=== PATIENT | female | born 1990 | race Caucasian/White ===

== ENCOUNTER 2021-04-27 06:57 | Emergency (ER) | payer OTHER, SELFPAY ==
[2021-04-27 07:31] VITALS: BP 101/48; PULSE 95; RESP 17; TEMP 37; O2SAT 98
[2021-04-27] MEDS: KETOROLAC (*BKC) 60 MG/2 ML VIAL IM (07:52)
[2021-04-27 08:13] LABS: Add Urine Microscopic? NO; Appearance Urine Clear (Clear); Bilirubin Urine Negative (Negative); Blood Urine Negative (Negative); Color Urine Light Yellow (Yellow); Glucose Urine UA Negative (Negative); Ketones Urine Negative (Negative); Leukocyte Esterase Ur Negative (Negative); Nitrate Urine Negative (Negative); Protein Urine Negative (Negative); Specific Grav Ur <= 1.005 (1.010-1.020); Urobilinogen Urine 0.2 mg/dL (0.2-1.0)
--- NOTE | 2021-04-27 08:21 | ED.BACK ---
HPI - Back Pain/Injury General Chief Complaint: Back Pain/Injury Stated Complaint: POSSIBLE BLADDER INFECTION Source: patient Mode of arrival: ambulatory Limitations: no limitations History of Present Illness HPI Narrative: this is a 31-year-old female who presents with some lower back pain around the L4-L5 right paravertebral area that is tender with some with movement no known injury has had prior issues with her lower back, with no fever chills no saddle paresthesias no dysuria no hematuria no diarrhea constipation. Rates her pain about a 6/10. MD elicited complaint: back pain Pertinent past history: prior back pain Onset (ago): day(s) Timing: constant Severity: moderate Pain scale (0-10): 6 Similar Symptoms Previously: Yes Quality: aching and spasming Location: lumbar spine Exacerbating factors: movement Relieving factors: immobilization Related Data Allergies Allergy/AdvReac Type Severity Reaction Status Date / Time No Known Allergies Allergy Mild Verified 02/28/11 19:37 Review of Systems Review of Systems: All systems reviewed & are unremarkable except as noted in HPI and below PMFSH Past Medical History Medical History Back pain Exam Const: General: no acute distress and alert Orientation/consciousness: patient oriented x3 HENMT: Head: normal to inspection Eyes: Conjunctivae: conjunctivae normal Pupils: Equal, round and reactive pupils present EOM: EOMs intact bilaterally Direct Ophthalmoscopy: no photophobia Neck: Neck: normal visual inspection, no lymphadenopathy and no meningeal signs Chest: Chest palpation & inspection: normal inspection of the chest Resp: Effort & Inspection: normal respiratory effort Auscultation: clear to auscultation bilaterally : General: Yes no CVA tenderness Urinary Catheter: Urinary Catheter: patent and draining and urine clear Back/Spine/Pelvis: Back: no CVA tenderness Skin: General skin exam: normal color Rashes: no rashes Neuro: General: patient oriented x3 and moves all extremities Extrem: Other: right L4 paravertebral tenderness with palpation Psych: Mental Status: mental status grossly normal Affect: normal affect Course Course Emergency Course: patient's pain has improved with some IM Toradol urinalysis reviewed which shows no urinary tract infection. Vital Signs Vital signs: Vital Signs Temperature 37.0 C 04/27/21 07:31 Pulse Rate 95 04/27/21 07:31 Respiratory Rate 17 04/27/21 07:31 Blood Pressure 101/48 L 04/27/21 07:31 Pulse Oximetry 98 04/27/21 07:31 Temperature 37.0 C 04/27/21 07:31 Pulse Rate 95 04/27/21 07:31 Respiratory Rate 17 04/27/21 07:31 Blood Pressure 101/48 L 04/27/21 07:31 Pulse Oximetry 98 04/27/21 07:31 MDM - Back Pain/Injury Lab Data Labs: Lab Results 04/27/21 Range/Units 07:26 Urine Color Light yellow (Yellow) Urine Appearance Clear (Clear) Urine pH 6.0 (5.0-8.0) Ur Specific [place] <= 1.005 L (1.010-1.020) Urine Protein Negative (Negative) Urine Glucose (UA) Negative (Negative) Urine Ketones Negative (Negative) Ur Blood (Man) Negative (Negative) Urine Nitrate Negative (Negative) Urine Bilirubin Negative (Negative) Urine Urobilinogen 0.2 (0.2-1.0) mg/dL Ur Leukocyte Esterase Negative (Negative) Critical Care Time Critical Care Time Critical Care Time: No Discharge Plan Discharge Clinical Impression: Strain of lumbar region Qualifiers: Encounter type: initial encounter Qualified Code(s): S39.012A - Strain of muscle, fascia and tendon of lower back, initial encounter Patient Disposition: Home, Self-Care Condition: Stable Instructions: Antibiotic Form, Acute Low Back Pain (ED) Additional Instructions: Take medicine as prescribed and follow-up with primary care physician if symptoms persist or worsen. Prescriptions: New naproxen 500 mg table
[2021-04-27 08:45] VITALS: BP 114/56; PULSE 73; RESP 18; O2SAT 99
== END 2021-04-27 08:48 | disposition home or self-care (01) ==
PROVIDERS: Emergency Provider Emergency Medicine
DX: S39.012A Strain of muscle, fascia and tendon of lower back, initial encounter (principal)
CPT/HCPCS: 81003; 96372; 99283; J1885

== ENCOUNTER 2021-09-26 12:31 | Emergency (ER) | payer OTHER, SELFPAY ==
[2021-09-26 12:56] VITALS: BP 120/67; PULSE 92; RESP 20; TEMP 36.3; O2SAT 97
--- NOTE | 2021-09-26 13:38 | ED.EAR ---
HPI - Ear Problem General Chief complaint: Ear Stated complaint: possible ear infection Time Seen by Provider: 09/26/21 12:34 Source: patient and RN notes reviewed Mode of arrival: ambulatory Limitations: no limitations History of Present Illness Complaint: ear pain Location: bilateral Duration: constant Severity: mild Relieving factors: nothing Exacerbating factors: nothing Discharge from ear: Reports no Associated symptoms ear: decreased hearing Treatment prior to arrival: none Related Data Allergies Allergy/AdvReac Type Severity Reaction Status Date / Time No Known Allergies Allergy Mild Verified 09/26/21 13:02 Review of Systems Review of Systems: All systems reviewed & are unremarkable except as noted in HPI and below PMFSH Past Medical History Medical History Back pain Otitis externa Otitis media Exam Const: General: no acute distress Nutritional Appearance: well nourished Orientation/consciousness: patient oriented x3 Limitations: no limitations HENMT: Head: normal to inspection Ears: external ears normal, Abnormal EAC present and TM abnormal General nose exam: Normal external nose present and Normal nares present Face and sinus: sinuses nontender Mouth: Yes moist mucous membranes Throat: posterior oropharynx normal Eyes: Conjunctivae: conjunctivae normal Pupils: Equal, round and reactive pupils present EOM: EOMs intact bilaterally Neck: Neck: normal visual inspection and no lymphadenopathy Chest: Chest palpation & inspection: normal inspection of the chest Resp: Effort & Inspection: normal respiratory effort Auscultation: clear to auscultation bilaterally Cardio: Rate: regular rate Rhythm: regular rhythm GI: GI Palp: Yes Soft to palpation and No Tenderness to palpation present (GI) Auscultation: normal bowel sounds : General: Yes bladder normal to palpation and Yes no CVA tenderness Back/Spine/Pelvis: Back: no CVA tenderness Skin: General skin exam: normal color Rashes: no rashes Neuro: General: patient oriented x3, moves all extremities, no meningeal signs, no focal motor deficits and CN's II-XI intact bilaterally Extrem: General: normal to inspection and no pedal edema Psych: Appearance: grossly normal and well kempt Mental Status: mental status grossly normal Affect: normal affect Attitude: cooperative Thought content: Yes Normal thought content present Course Course Emergency Course: Pt was stable with less pain. Reevaluation(s) Reevaluation #1: vss Date: 09/26/21 Time: 12:56 Vital Signs Vital signs: Vital Signs Temperature 36.3 C L 09/26/21 12:56 Pulse Rate 92 09/26/21 12:56 Respiratory Rate 20 09/26/21 12:56 Blood Pressure 120/67 09/26/21 12:56 Pulse Oximetry 97 09/26/21 12:56 Temperature 36.6 C 09/26/21 13:59 Pulse Rate 88 09/26/21 13:59 Respiratory Rate 20 09/26/21 13:59 Blood Pressure 112/78 09/26/21 13:59 Pulse Oximetry 97 09/26/21 13:59 Medical Decision Making Differential Diagnosis Differential Diagnosis: otitis media and otitis externa Medical Records Medical records reviewed: Yes I reviewed the external patient's medical records. Vital Signs Vital Signs: Vital Signs Temperature 36.3 C L 09/26/21 12:56 Pulse Rate 92 09/26/21 12:56 Respiratory Rate 20 09/26/21 12:56 Blood Pressure 120/67 09/26/21 12:56 Pulse Oximetry 97 09/26/21 12:56 Temperature 36.6 C 09/26/21 13:59 Pulse Rate 88 09/26/21 13:59 Respiratory Rate 20 09/26/21 13:59 Blood Pressure 112/78 09/26/21 13:59 Pulse Oximetry 97 09/26/21 13:59 Critical Care Time Critical Care Time Critical Care Time: No Total Critical Care Time: 0 Discharge Plan Discharge Clinical Impression: Otitis externa Qualifiers: Otitis externa type: unspecified type Chronicity: acute Laterality: bilateral Qualified Code(s): H60.503 - Unspecified acute noninfective otitis
[2021-09-26 13:59] VITALS: BP 112/78; PULSE 88; RESP 20; TEMP 36.6; O2SAT 97
== END 2021-09-26 14:00 | disposition home or self-care (01) ==
PROVIDERS: Emergency Provider Emergency Medicine
DX: H60.503 Unspecified acute noninfective otitis externa, bilateral (principal); H66.90 Otitis media, unspecified, unspecified ear
CPT/HCPCS: 99283

== ENCOUNTER 2021-09-29 10:31 | Emergency (ER) | payer OTHER, SELFPAY ==
[2021-09-29 10:40] VITALS: BP 123/46; PULSE 101; RESP 18; TEMP 37.3; O2SAT 99
--- NOTE | 2021-09-29 11:02 | ED.EAR ---
HPI - Ear Problem General Chief complaint: Ear Stated complaint: EARACHE/FACIAL SWELLING Time Seen by Provider: 09/29/21 10:42 Source: patient and RN notes reviewed Mode of arrival: ambulatory Limitations: no limitations History of Present Illness HPI Narrative: Patient presents today complaining of right ear pain x1 week that has been worsening since onset, and now include swelling to the ear and side of her face. She was seen in the ER at [facility] 3 days ago and diagnosed with otitis media and otitis externa and placed on amoxicillin. She was also told at that time to start Mucinex DM. States that she cannot now hear out of her right ear and has some clear drainage. She currently rates her pain 6/10 and has been taking ibuprofen with mild relief. MD Complaint: ear pain, ear discharge and decreased hearing Related Data Allergies Allergy/AdvReac Type Severity Reaction Status Date / Time No Known Allergies Allergy Mild Verified 09/26/21 13:02 Review of Systems Review of Systems: CONSTITUTIONAL: Denies body aches, fever, chills, or sweats. EYES: Denies visual changes, redness, or discharge. ENT: Denies rhinorrhea, congestion, sore throat. + Right ear pain, swelling, drainage, absent hearing CARDIOVASCULAR: Denies chest pain, palpitations, or edema. RESPIRATORY: Denies cough or dyspnea. GASTROINTESTINAL: Denies abdominal pain, nausea, vomiting, or diarrhea. GENITOURINARY: Denies dysuria or hematuria. SKIN: Denies rash, itching, or wounds. MUSCULOSKELETAL: Denies back pain, joint pain, or myalgia. NEUROLOGIC: Denies headache, numbness, tingling, or weakness. PSYCH: Denies depression or anxiety. [facility] Past Medical History Medical History Back pain Comments At time of signature, I have reviewed and agree with nursing past medical, surgical, social and family history unless otherwise noted. Please see nursing chart for further information. There is no relevant family history pertinent to the presenting complaint Exam Narrative: GENERAL: Well-appearing, well-nourished, and in no acute distress. HEAD: Normocephalic, atraumatic. EYES: EOMI. No redness or drainage. Conjunctivae normal. ENT: Mucous membranes pink and moist. Nares clear. No rhinorrhea. Left TM normal. Right TM is occluded by extremely swollen ear canal. External ear is erythematous and tender to touch. + Movement and tragal tenderness. Yellow/orange crusting drainage coming out of the canal. Patient also has some preauricular swelling. NECK: Normal AROM. CHEST: No respiratory distress. EXTREMITIES: Normal range of motion. No edema. SKIN: Warm, dry, no rash. Capillary refill normal. Normal skin turgor. NEURO: No focal deficits. Alert and oriented x3. Gait steady. PSYCH: Normal affect. No signs of depression or anxiety. Course Course Level of Care: Express Care Visit Vital Signs Vital signs: Vital Signs Temperature 99.2 F 09/29/21 10:40 Pulse Rate 101 H 09/29/21 10:40 Respiratory Rate 18 09/29/21 10:40 Blood Pressure 123/46 L 09/29/21 10:40 Pulse Oximetry 99 09/29/21 10:40 Temperature 99.2 F 09/29/21 10:40 Pulse Rate 101 H 09/29/21 10:40 Respiratory Rate 18 09/29/21 10:40 Blood Pressure 123/46 L 09/29/21 10:40 Pulse Oximetry 99 09/29/21 10:40 Reviewed. Pt has been instructed to follow up with her PCP regarding her elevated blood pressure today. Procedures Other Procedure Procedure 1: Other Procedure: Ear wick was placed in patient's right ear. It was expanded with 2 drops of normal saline. Patient tolerated procedure well. Medical Decision Making Differential Diagnosis Differential Diagnosis: Otitis externa, otitis media, ruptured TM, mastoiditis Vital Signs Vital Signs: Vital Signs Temperature 99.2 F 09/29/21 10:40 Pulse Rate 101 H 09/29/21 10:40 Respiratory Rate 18 09/29/21 10:40 Blood Pressure 123/46
== END 2021-09-29 11:15 | disposition home or self-care (01) ==
PROVIDERS: Emergency Provider Nurse Practitioner
DX: H60.501 Unspecified acute noninfective otitis externa, right ear (principal)
CPT/HCPCS: 99213; G0463

== ENCOUNTER 2023-12-04 06:31 | Emergency (ER) | payer BC, MEDICAID, SELFPAY ==
[2023-12-04] VITALS (9 sets, daily range): BP systolic 107–139; BP diastolic 63–76; PULSE 77–80; RESP 14–18; O2SAT 94–100
--- NOTE | ~2023-12-04 | US_ITS ---
EXAMINATION: US OB limited DATE: 12/04/2023 10:23 INDICATION: Vaginal bleeding. . TECHNIQUE: Real-time transabdominal pelvic ultrasound was performed. COMPARISON: None. FINDINGS: There is an intrauterine gestational sac. There is a single fetus in vertex presentation. The c rown rump length measures 8.7 cm, which correlates with an estimated gestational age of 14 weeks and 4 day(s) (+/-) 1 week(s) and 2 day(s). heart motion is identified measuring 149 beats per minut e (bpm) by M-mode Doppler. The cervical length is 3.3 cm on transabdominal images, which is normal. T he amniotic fluid volume is subjectively normal. The deepest vertical pocket is 4.8 cm which is aurelia l. IMPRESSION: 1. Single living intrauterine gestation with estimated date of delivery of 05/30/2024. Reviewed, dictated and finalized at location A.
[2023-12-04 06:59] LABS: Basophils Percent Auto 0.2 % (0.2-1.2); Eosinophils Absolute Auto 0.1 K/mm3 (0-0.3); Hematocrit 39.1 % (37.0-47.0); Hemoglobin 13.4 g/dL (12.0-15.0); Immature Granulocyte Absolute 0.04 K/mm3 (0.00-0.031); Immature Granulocyte Percent A 0.4 % (0-0.5); Lymphocytes Absolute Auto 1.63 K/mm3 (0.9-3.2); Lymphocytes Percent Auto 17.9 % (18.3-44.2); Mean Corpuscular HGB Conc 34.3 g/dl (32-36); Mean Corpuscular Hemoglobin 30.2 pg (26-34); Mean Corpuscular Volume 88.3 fl (80-100); Monocytes Absolute Auto 0.5 K/mm3 (0.1-0.6); Monocytes Percent Auto 5.4 % (2.6-8.5); Neutrophils Absolute Auto 6.8 K/mm3 (1.3-6.7); Neutrophils Percent Auto 75.1 % (45.5-73.1); Platelet Count Result 256 k/mm3 (150-375); Red Blood Count 4.43 M/mm3 (4.2-5.4); Red Cell Distribution Width 13.1 % (11.5-14.5); White Blood Count 9.1 K/mm3 (4.5-10.0)
[2023-12-04 07:12] LABS: Prothrombin Time 13.2 Seconds (11.1-14.7)
[2023-12-04 07:13] LABS: Alanine Aminotransferase 31 U/L (6-35); Albumin Level 4.3 g/dL (3.5-5.1); Alkaline Phosphatase 66 U/L (38-126); Anion Gap 9 mmol/L (4-12); Aspartate Amino Transferase 22 U/L (14-36); Bilirubin,Total 0.4 mg/dL (0.2-1.3); Blood Urea Nitrogen 4 mg/dL (7-17); Calcium 9.4 mg/dL (8.4-10.2); Carbon Dioxide 18 mmol/L (22-30); Chloride 108 mmol/L (98-107); Estimated CRCL calculation 166 ml/min; Estimated Glomerular Filt Rate > 60; Glucose 95 mg/dL (65-110); Partial Thromboplastin Time 26.8 Seconds (22.3-36.8); Potassium 3.7 mmol/L (3.4-5.0); Sodium 135 mmol/L (137-145)
[2023-12-04 07:15] LABS: Appearance Urine Cloudy (Clear); Bacteria Urine 1+ /hpf; Bilirubin Urine Negative (Negative); Blood Urine 3+ (Negative); Color Urine Yellow (Yellow); Glucose Urine UA Negative (Negative); Ketones Urine Negative (Negative); Leukocyte Esterase Ur Trace LEU/UL (Negative); Need Manual Microscopic Reviewed; Nitrate Urine Negative (Negative); Non Pathogenic Casts 0-2; Protein Urine Trace mg/dL (Negative); RBC Urine 21-50 /hpf (0-2); Specific Grav Ur 1.013 (1.001-1.035); Squamous Epithelial Cell Urine Moderate /hpf (Few); WBC Urine 0-5 /hpf (0-3); pH Urine 7.5 (5.0-9.0)
[2023-12-04 07:16] LABS: Add Urine Microscopic? YES
[2023-12-04 08:32] LABS: Pregnancy On Board Control Positive; Urine Pregnancy Test Positive
--- NOTE | 2023-12-04 08:48 | ED.FEMALEGU ---
HPI - Female Genitourinary General Chief complaint: Vaginal Bleeding Stated complaint: Spotting; ; unsure how far along, guess 3m Time Seen by Provider: 12/04/23 06:57 History of Present Illness HPI Narrative: 33-year-old female presenting to the emergency department for evaluation vaginal spotting. Patient states this morning she noticed that she had passed some old brown blood vaginally. Patient denies any bright red blood denies any lower abdominal pain. Patient suspects she has approximately 3 months . Patient has not yet had follow-up with OB Gyne. Patient does have follow-up with Dr. Ram at [facility] on Saturday. Related Data Allergies Allergy/AdvReac Type Severity Reaction Status Date / Time No Known Allergies Allergy Mild Verified 09/26/21 13:02 Review of Systems Review of Systems: All systems reviewed & are unremarkable except as noted in HPI and below PMFSH Past Medical History Medical History Back pain Otitis externa Otitis media Exam Narrative: APPEARANCE: Well appearing, no pain, no distress, well-nourished. HEAD: normocephalic, atraumatic. EYES: PERRLA/EOMI, conjunctivae clear. NOSE: Normal no drainage NECK: Supple. No adenopathy, no masses. RESPIRATORY: Airway patent, respirations nonlabored. Clear to auscultation bilaterally, no rales, rhonchi, wheezing. CARDIOVASCULAR: Regular rate and rhythm without murmurs rubs or gallops. ABDOMINAL: Soft, nontender, nondistended, normal bowel sounds Pelvic exam: No vaginal discharge, no bright red blood in the vaginal vault. MUSCULOSKELETAL: Moves all extremities. Strength/ROM intact, No edema, No calf tenderness. NEURO: Alert. Cranial nerves II through XII intact. Grossly intact SKIN: Warm, dry. Normal Color Course Course Emergency Course: Patient was discharged home with outpatient follow-up on Saturday with OB Gyne. Vital Signs Vital signs: Vital Signs Pulse Oximetry 94 12/04/23 06:52 Pulse Rate 80 12/04/23 11:17 Respiratory Rate 14 12/04/23 11:17 Blood Pressure 107/63 12/04/23 11:17 Pulse Oximetry 99 12/04/23 11:17 MDM - Female Genitourinary MDM Narrative Medical decision making narrative: 33-year-old female presents to the emergency department for evaluation of brown blood/vaginal discharge. Patient is afebrile with no leukocytosis and a stable hemoglobin. Patient has no active bleeding. Patient's INR is 1.0. No significant acute abnormalities on the patient's CMP. Patient's beta hCG is 52,612. Urine did have blood but was negative for urinary tract infection. Urine culture is pending. Ultrasound showed single uterine . Patient had no active vaginal bleeding or discharge. Small amount of old brown blood in the posterior vaginal vault. Cervix is normal appearing. Patient does have follow-up with her OB Gyne on Saturday. Patient was advised to drink plenty fluids, Tylenol for any abdominal cramping and to follow up vaginal rest until cleared by OB Gyne. Differential Diagnosis Differential diagnosis: Likely other Lab Data Attestation: I reviewed the patient's lab results. 12/04/23 06:51 12/04/23 06:51 Labs: Lab Results 12/04/23 12/04/23 12/04/23 Range/Units 06:49 06:50 06:51 WBC 9.1 (4.5-10.0) K/mm3 RBC 4.43 (4.2-5.4) M/mm3 Hgb 13.4 (12.0-15.0) g/dL Hct 39.1 (37.0-47.0) % MCV 88.3 (80-100) fl MCH 30.2 (26-34) pg MCHC 34.3 (32-36) g/dl RDW 13.1 (11.5-14.5) % Plt Count 256 (150-375) k/mm3 MPV 11.0 H (7.4-10.4) fl Immature Gran % (Auto) 0.4 (0-0.5) % Neut % (Auto) 75.1 H (45.5-73.1) % Lymph % (Auto) 17.9 L (18.3-44.2) % [place] % (Auto) 5.4 (2.6-8.5) % Eos % (Auto) 1.0 (0-4.4) % Baso % (Auto) 0.2 (0.2-1.2) % Lymph # (Auto) 1.63 (0.9-3.2) K/mm3 [place] # (Auto) 0.5 (0.1-0.6) K/mm3 Eos # (Auto) 0.1 (0-0.3) K/mm3 Bas
[2023-12-04] MEDS: RHO(D) IMMUNE GLOBULIN 300 MCG/2 ML SYRINGE IM (09:43)
== END 2023-12-04 11:19 | disposition home or self-care (01) ==
PROVIDERS: Emergency Medicine; Emergency Provider Emergency Medicine
DX: O20.9 Hemorrhage in early pregnancy, unspecified (principal); Z3A.14 14 weeks gestation of pregnancy
CPT/HCPCS: 36415; 76815; 80053; 81001; 81025; 84702; 85025; 85461; 85610; 85730; 86850; 86900; 86901; 90384; 96372; 99284; J2790

== ENCOUNTER 2024-03-15 11:15 | Outpatient (RCR) | payer OTHER, SELFPAY ==
[2024-03-15] MEDS: RHO(D) IMMUNE GLOBULIN 300 MCG/2 ML SYRINGE IM (11:35)
== END 2024-06-11 23:59 | disposition home or self-care (01) ==
LOC: ANHLAB 11:15
PROVIDERS: Visit Provider Obstetrics & Gynecology
DX: Z29.13 Encounter for prophylactic Rho(D) immune globulin (principal); O36.0130 Maternal care for anti-D [Rh] antibodies, third trimester, not applicable or unspecified; Z3A.00 Weeks of gestation of pregnancy not specified
CPT/HCPCS: 36415; 85461; 86850; 86900; 86901; 90384; 96372; J2790

== ENCOUNTER 2024-04-08 07:09 | Emergency (ER) | payer OTHER, SELFPAY ==
[2024-04-08 07:09] VITALS: BP 131/68; PULSE 120; RESP 20; TEMP 36.3; O2SAT 99
[2024-04-08 07:16] VITALS: BP 131/68; PULSE 120; RESP 20; TEMP 36.3; O2SAT 99
[2024-04-08 07:25] VITALS: BP 107/66; O2SAT 99
[2024-04-08 07:33] VITALS: BP 103/71; O2SAT 96
[2024-04-08 07:46] VITALS: BP 116/76; O2SAT 97
--- NOTE | 2024-04-08 07:46 | ED.NAVMDI ---
HPI - Nausea/Vomiting/Diarrhea General Chief complaint: Nausea/Vomiting/Diarrhea Stated complaint: n-v-d Source: patient Mode of arrival: ambulatory Limitations: no limitations History of Present Illness HPI Narrative: 33-year-old female G3 8 to, 32 weeks presents to the ED with a 2 day history of -- nausea with vomiting which has now resolved -- ongoing diarrhea. She had 2 episodes of diarrhea this morning. Stool is watery. No blood or mucus. No fever abdominal pain. She feels movements. MD elicited complaint: vomiting and diarrhea Onset (ago): day(s) ( Two days) Description of vomiting: watery Description of diarrhea: watery Associated nausea: No Associated abdominal pain: No Location of pain: none Context: possible food poisoning Associated symptoms: denies other symptoms Related Data Home Medications Medication Instructions Recorded Confirmed Classic 1 tablet PO DAILY 04/08/24 04/08/24 pantoprazole 40 mg tablet,delayed 40 mg PO DAILY 04/08/24 04/08/24 release Allergies Allergy/AdvReac Type Severity Reaction Status Date / Time No Known Allergies Allergy Mild Verified 04/08/24 07:15 Review of Systems Review of Systems: All systems reviewed & are unremarkable except as noted in HPI and below Constitutional: Constitutional: Reports as per HPI and Reports no additional constitutional complaints Eyes: Eyes: Reports as per HPI and Reports no additional eye complaints ENT: Reports system reviewed and no additional complaints, except as documented and Reports as per HPI Cardiovascular: Cardiovascular: Reports as per HPI and Reports no additional cardiovascular complaints Respiratory: Respiratory: Reports as per HPI and Reports no additional respiratory complaints Gastrointestinal: Gastrointestinal: Reports as per HPI, Reports no additional gastrointestinal complaints, Reports diarrhea and Reports vomiting Genitourinary: Genitourinary: Reports no additional female genitourinary complaints and Reports as per HPI Comments: patient is making good amounts of urine. Musculoskeletal: Musculoskeletal: Reports no additional musculoskeletal complaints and Reports as per HPI Integumentary/Breasts: Skin/Breast: Reports system reviewed and no additional complaints, except as docu and Reports as per HPI Neurologic: Reports system reviewed and no additional complaints, except as documented and Reports as per HPI Psychiatric: Psychiatric: Reports no additional psychiatric complaints and Reports as per HPI Endocrine: Endocrine: Reports no additional endocrine complaints and Reports as per HPI Hematologic/Lymphatic: Hematologic/Lymphatic: Reports no additional hematologic/lymphatic complaints and Reports as per HPI Allergic/Immunologic: Allergic/Immunologic: Reports no additional allergic/immunologic complaints and Reports as per HPI [facility] Past Medical History Medical History Back pain Otitis externa Otitis media Exam Narrative: blood pressure Is 131/68.. Heart rate of 120. Saturating 99% on room air. Const: General: no acute distress Nutritional Appearance: well nourished Orientation/consciousness: patient oriented x3 Limitations: no limitations HENMT: Head: normal to inspection Ears: external ears normal Face/Nose/Sinus: Normal external nose present Face and sinus: normal facial exam Mouth: Yes Normal oral and palatal mucosa present Throat: posterior oropharynx normal Eyes: Conjunctivae: conjunctivae normal Cornea: corneas normal Pupils: Equal, round and reactive pupils present EOM: EOMs intact bilaterally Direct Ophthalmoscopy: no photophobia Neck: Neck: normal visual inspection, no lymphadenopathy and no meningeal signs Chest: Chest palpation & inspection: normal inspection of the chest Resp: Effort & Inspection: normal respiratory effort Auscultation: clear to auscultation bilaterally Cardio:
--- NOTE | 2024-04-08 07:52 | PC.NURSE ---
PT denies back pain, vaginal discharge, leakage, or abdominal pain.
[2024-04-08 08:01] VITALS: BP 102/66
[2024-04-08 08:09] LABS: Appearance Urine Sl Cloudy (Clear); Color Urine Yellow (Yellow); Glucose Urine UA Negative (Negative); Protein Urine Trace (Negative); Specific Grav Ur 1.015 (1.010-1.020)
[2024-04-08 08:10] LABS: Basophils Absolute Auto 0.02 K/mm3 (0.00-0.10); Basophils Percent Auto 0.2 % (0.0-1.0); Eosinophils Absolute Auto 0.08 K/mm3 (0.02-0.50); Eosinophils Percent Auto 0.8 % (1.0-6.0); Hematocrit 33.7 % (35.0-49.0); Hemoglobin 11.3 g/dL (12.0-15.0); Immature Granulocyte Absolute 0.07 K/mm3 (0.00-0.00); Immature Granulocyte Percent A 0.7 % (0.0-0.0); Lymphocytes Absolute Auto 1.04 K/mm3 (1.10-4.50); Mean Corpuscular HGB Conc 33.5 g/dL (32-36); Mean Corpuscular Hemoglobin 30.2 pg (27.0-31.0); Mean Corpuscular Volume 90.1 fL (78.0-102.0); Mean Platelet Volume 10.6 fl (9.2-11.8); Monocytes Absolute Auto 0.65 K/mm3 (0.10-0.90); Monocytes Percent Auto 6.9 % (2.0-11.0); Neutrophils Absolute Auto 7.59 K/mm3 (1.70-7.20); Neutrophils Percent Auto 80.4 % (50.0-70.0); Platelet Count Result 235 K/mm3 (150-420); Red Blood Count 3.74 M/mm3 (4.20-5.40); Red Cell Distribution Width 14.8 % (11.6-14.4); White Blood Count 9.5 K/mm3 (4.8-10.8)
[2024-04-08 08:10] LABS: Add Urine Microscopic? YES; Bacteria Urine 3+ /hpf; Bilirubin Urine Negative (Negative); Blood Urine Negative (Negative); Ketones Urine Negative (Negative); Leukocyte Esterase Ur Negative LEU/UL (Negative); Nitrate Urine Negative (Negative); RBC Urine None seen /hpf (0-2); Squamous Epithelial Cell Urine Many /hpf (Few); Urobilinogen Urine Normal mg/dL (0.2-1.0); WBC Urine 0-3 /hpf (0-3)
[2024-04-08 08:26] LABS: Alanine Aminotransferase 33 U/L (14-59); Albumin Level 2.7 g/dL (3.4-5.0); Alkaline Phosphatase 154 U/L (46-116); Anion Gap 11 mmol/L (4-12); Aspartate Amino Transferase 23 U/L (15-37); Bilirubin,Total 0.3 mg/dL (0.00-1.00); Blood Urea Nitrogen 5 mg/dL (7-18); Calcium 8.8 mg/dL (8.5-10.1); Carbon Dioxide 22 mmol/L (21-32); Chloride 103 mmol/L (98-108); Estimated CRCL calculation 138 ml/min; Estimated Glomerular Filt Rate > 60; Glucose 95 mg/dL (70-99); Osmolality Calculated 279 mOsm/kg (285-295); Potassium 3.8 mmol/L (3.5-5.1); Sodium 136 mmol/L (136-145); Total Protein 6.6 g/dL (6.4-8.2)
[2024-04-08 08:30] LABS: Lipase 48 U/L (16-77)
[2024-04-08 08:31] LABS: Lactic Acid Reflex 1.4 mmol/L (0.4-2.0)
--- NOTE | 2024-04-08 08:38 | PC.NURSE ---
Pt completed the HIV testing refusal form.
== END 2024-04-08 08:55 | disposition home or self-care (01) ==
PROVIDERS: Emergency Provider Internal Medicine Critical Care Medicine; PCP Obstetrics & Gynecology
DX: K52.9 Noninfective gastroenteritis and colitis, unspecified (principal); D64.9 Anemia, unspecified
CPT/HCPCS: 36415; 80053; 81001; 83605; 83690; 85025; 99283

== ENCOUNTER 2024-04-27 08:50 | Emergency (ER) | payer OTHER, SELFPAY ==
--- NOTE | ~2024-04-27 | XR_ITS ---
XR wrist LT min 3V Ordering provider: Marina Mitchell PA-C History: . left wrist pain, X 2 DAYS NKI PAIN MEDIAL 35 weeks . Comparison: None. FINDINGS: BONES: No acute fracture or dislocation. No definite scaphoid fracture. JOINT SPACES: Well maintained. SOFT TISSUES: Normal. IMPRESSION: No acute osseous abnormality left wrist. Reviewed, dictated and finalized at location A.
[2024-04-27 08:55] VITALS: BP 124/73; PULSE 100; RESP 20; TEMP 36.6; O2SAT 99
--- NOTE | 2024-04-27 09:32 | ED.EXTPRO ---
HPI - Extremity Problem General Chief complaint: Extremity Problem,Nontraumatic Stated complaint: L wrist pain and swelling Time Seen by Provider: 04/27/24 09:08 Source: patient Mode of arrival: ambulatory Limitations: no limitations History of Present Illness HPI Narrative: This is a 34-year-old female that presents to the emergency department for left wrist pain. Ongoing over the last week. Reports the area is a little swollen. No known injuries. Patient is currently 35 weeks . Has no related concerns and has had routine care. Pain is worse with certain movements and relieved with rest. Denies fevers, erythema, decreased range of motion, or numbness. Related Data Home Medications Medication Instructions Recorded Confirmed Classic 1 tablet PO DAILY 04/08/24 04/08/24 pantoprazole 40 mg tablet,delayed 40 mg PO DAILY 04/08/24 04/08/24 release Allergies Allergy/AdvReac Type Severity Reaction Status Date / Time No Known Allergies Allergy Mild Verified 04/27/24 08:51 Review of Systems Review of Systems: CONSTITUTIONAL: Denies fever SKIN: Denies rash MUSCULOSKELETAL: Reports joint pain, and myalgia. NEUROLOGIC: Denies numbness, or weakness. All systems reviewed & are unremarkable except as noted in HPI and below PMFSH Past Medical History Medical History Back pain Otitis externa Otitis media Social History Social History (Updated 04/27/24 @ 09:33 by Marina Mitchell PA-C) Substance use: never Exam Narrative: GENERAL: Well-appearing, well-nourished, and in no acute distress. HEAD: Normocephalic, atraumatic. EYES: EOMI. EXTREMITIES: Normal range of motion. No edema or erythema. Normal radial pulse. Normal sensation SKIN: Warm, dry, no rash. NEURO: No focal deficits. Alert and oriented x3. PSYCH: Normal mood and affect Course Vital Signs Vital signs: Vital Signs Temperature 97.8 F 04/27/24 08:55 Pulse Rate 100 04/27/24 08:55 Respiratory Rate 20 04/27/24 08:55 Blood Pressure 124/73 04/27/24 08:55 Pulse Oximetry 99 04/27/24 08:55 Oxygen Delivery Room Air 04/27/24 08:55 Temperature 97.8 F 04/27/24 08:55 Pulse Rate 100 04/27/24 08:55 Respiratory Rate 20 04/27/24 08:55 Blood Pressure 124/73 04/27/24 08:55 Pulse Oximetry 99 04/27/24 08:55 Oxygen Delivery Room Air 04/27/24 08:55 MDM - Extremity (Nontraumatic) MDM Narrative Medical decision making narrative: patient presents to the emergency department for left wrist pain ongoing over the last week. No recent injuries or trauma. She is neurovascularly intact. No erythema or edema of the wrist. Left wrist x-ray without acute osseous abnormalities. Patient was updated on her workup and agrees with plan of care. She is to follow up with primary provider. She was given warnings to return to the ER Differential Diagnosis Differential diagnosis: Likely gout and other (arthritis, carpal tunnel syndrome, tendinitis) Imaging Data Radiologist's impression: ITS Impressions Wrist X-Ray 04/27/24 09:43 IMPRESSION: No acute osseous abnormality left wrist. Critical Care Time Critical Care Time Critical Care Time: No Discharge Plan Discharge Clinical Impression: Acute pain of left wrist Patient Disposition: Home, Self-Care Condition: Stable Instructions: Wrist Injury (ED) Additional Instructions: Return to the ER if you experience fever, redness and swelling of your arm, weakness, numbness, or any other symptoms that are concerning to you Rest, use ice/heat, take Tylenol as needed for pain. Buy an over the counter wrist brace to wear for support Follow up with hand surgeon if needed Prescriptions: No Action pantoprazole 40 mg tablet,delayed release (DR/EC) 40 mg PO DAILY Classic 1 tablet PO DAILY Follow-up/Referrals: Susan
== END 2024-04-27 10:34 | disposition home or self-care (01) ==
PROVIDERS: Emergency Provider Physician Assistant
DX: O99.891 Other specified diseases and conditions complicating pregnancy (principal); M25.532 Pain in left wrist; Z3A.35 35 weeks gestation of pregnancy
CPT/HCPCS: 73110; 99283

== ENCOUNTER 2024-05-23 05:02 | Inpatient (IN) | payer OTHER, SELFPAY ==
[2024-05-23] VITALS (186 sets, daily range): BP systolic 99–137; BP diastolic 45–89; PULSE 78–119; RESP 16–20; TEMP 36.5–36.7; O2SAT 94–100; BMI 35.5
[2024-05-23 05:38] LABS: Basophils Percent Auto 0.3 % (0.2-1.2); Eosinophils Absolute Auto 0.3 K/mm3 (0-0.3); Eosinophils Percent Auto 2.9 % (0-4.4); Hematocrit 36.3 % (37.0-47.0); Hemoglobin 12.4 g/dL (12.0-15.0); Immature Granulocyte Absolute 0.11 K/mm3 (0.00-0.031); Lymphocytes Absolute Auto 1.71 K/mm3 (0.9-3.2); Lymphocytes Percent Auto 15.3 % (18.3-44.2); Mean Corpuscular HGB Conc 34.2 g/dl (32-36); Mean Corpuscular Volume 90.8 fl (80-100); Monocytes Absolute Auto 0.7 K/mm3 (0.1-0.6); Monocytes Percent Auto 6.3 % (2.6-8.5); Neutrophils Absolute Auto 8.3 K/mm3 (1.3-6.7); Neutrophils Percent Auto 74.2 % (45.5-73.1); Platelet Count Result 211 k/mm3 (150-375); Red Cell Distribution Width 14.6 % (11.5-14.5); White Blood Count 11.2 K/mm3 (4.5-10.0)
--- NOTE | 2024-05-23 05:39 | LDADM ---
This patient, Cary Givens, was admitted to Labor/Delivery/Recovery 106 on 05/23/24 at 05:02. Plans for labor, pain management and were discussed with patient. Patient/family oriented to hospital policies and general routines including ID bracelet, bed and alarms, visiting hours, pain management, procedures, bathroom and other care routines, personal items, smoking policy, room service/diet and guest tray routines, infant security routines, and visiting hours. Patient/Family are encouraged to report perceived risks to care and to ask questions if they do not understand what they are told or what they should do. See OBIX for further documentation.
[2024-05-23] MEDS: miSOPROStol 25 MCG TABLET 50 MCG BUCCAL ×2 (06:23→10:18)
[2024-05-23 06:25] LABS: HIV 1/2 Ab P24 Ag Result Negative (Negative)
[2024-05-23] MEDS: PANTOPRAZOLE 40 MG TABLET PO (06:48)
--- NOTE | 2024-05-23 07:05 | WPDANESEPP ---
Anes - Eval Pre Procedure Procedure: Labor epidural Date/Time: 05/23/24 07:05 Surgeon: Zaki Preop Diagnosis: Pain during labor Pre Op Diagnosis: Induction of Labor Patient Data Age: 34 Gender: F Height: 1.63 m Weight: 94.01 kg Last Vital Signs Pulse 94 05/23/24 07:00 BP 121/79 05/23/24 07:00 Pulse Ox 98 05/23/24 07:01 O2 Del Method Room Air 05/23/24 05:36 Allergies Allergy/AdvReac Type Severity Reaction Status Date / Time No Known Allergies Allergy Mild Verified 05/01/24 12:17 Home Medications Medication Instructions Recorded Confirmed Type Classic 1 tablet PO DAILY 04/08/24 05/01/24 History pantoprazole 40 mg tablet,delayed 40 mg PO DAILY 04/08/24 05/01/24 History release ferrous sulfate 325 mg (65 mg 325 mg PO DAILY 05/01/24 05/01/24 History iron) tablet Laboratory Tests 05/23/24 05:12 WBC 11.2 H K/mm3 (4.5-10.0) RBC 4.00 L M/mm3 (4.2-5.4) Hgb 12.4 g/dL (12.0-15.0) Hct 36.3 L % (37.0-47.0) MCV 90.8 fl (80-100) MCH 31.0 pg (26-34) MCHC 34.2 g/dl (32-36) RDW 14.6 H % (11.5-14.5) Plt Count 211 k/mm3 (150-375) MPV 11.0 H fl (7.4-10.4) Immature Gran % (Auto) 1.0 H % (0-0.5) Neut % (Auto) 74.2 H % (45.5-73.1) Lymph % (Auto) 15.3 L % (18.3-44.2) Newberry % (Auto) 6.3 % (2.6-8.5) Eos % (Auto) 2.9 % (0-4.4) Baso % (Auto) 0.3 % (0.2-1.2) Lymph # (Auto) 1.71 K/mm3 (0.9-3.2) Newberry # (Auto) 0.7 H K/mm3 (0.1-0.6) Eos # (Auto) 0.3 K/mm3 (0-0.3) Baso # (Auto) 0.0 K/mm3 (0.0-0.1) Abs Immat Gran (auto) 0.11 H K/mm3 (0.00-0.031) Absolute Neuts (auto) 8.3 H K/mm3 (1.3-6.7) Absolute Nucleated RBC 0.000 K/mm3 (0.0-0.012) Nucleated RBC % 0.0 % (0.0-0.2) RPR Pending HIV 1&2 Ab/P24 Ag 4thGn Negative (Negative) Blood Type O Negative Antibody Screen Pending Patient hx anesthesia problems: none Family hx anesthesia problems: none Results Review: All pre-operative results and documents have been reviewed as part of the pre-operative evaluation. [facility] Past Medical History Medical History Back pain Otitis externa Otitis media Family History Family History Other Unknown family medical history Social History Social History Smoking status: Never smoker Second hand tobacco smoke exposure: No Substance use: never Do You Feel Safe in your Home?: Yes Lack of Transportation: No Lack of Food: Never True Current Housing: I Have Housing Concerned About Future Housing: No Difficulty Paying Gas/Electric Bills: No Difficulty Paying for Meds: No Currently Unemployed: No Education: High School Diploma/GED Difficulty w/ Childcare or Family Care: No Spiritual care concerns: No Exam Day of Procedure 05/23/24 07:05 Patient weight: overweight Heart: regular rate and rhythm Lungs: clear to auscultation and normal air movement Airway: Mallampati scale class II Neurological: alert and oriented
--- NOTE | 2024-05-23 09:20 | P.HP_ITS ---
H&P: HPI History of Present Illness Date/Time: 05/23/24 09:20 Chief Complaint: EIL Narrative: Patient is a 34 year old at 39 weeks who presents for elective induction of labor. Her has been complicated by suspected large for gestational age fetus, marginal cord insertion, and circumvallate placenta. Her fetus was also noted to have unilateral renal pelvic dilation. She denies strong contracti ons, leakage of fluid or vaginal bleeding. Reports good movement. Review of Systems Review of Systems: All systems reviewed & are unremarkable except as noted in HPI and below PMFSH Past Medical History Medical History Back pain Otitis externa Otitis media Family History Family History Other Unknown family medical history Social History Social History Smoking status: Never smoker Second hand tobacco smoke exposure: No Substance use: never Do You Feel Safe in your Home?: Yes Lack of Transportation: No Lack of Food: Never True Current Housing: I Have Housing Concerned About Future Housing: No Difficulty Paying Gas/Electric Bills: No Difficulty Paying for Meds: No Currently Unemployed: No Education: High School Diploma/GED Difficulty w/ Childcare or Family Care: No Spiritual care concerns: No Meds Home Medications and Allergies Home Medications Medication Instructions Recorded Confirmed Type Classic 1 tablet PO DAILY 04/08/24 05/01/24 History pantoprazole 40 mg tablet,delayed 40 mg PO DAILY 04/08/24 05/01/24 History release ferrous sulfate 325 mg (65 mg 325 mg PO DAILY 05/01/24 05/01/24 History iron) tablet Allergies Allergy/AdvReac Type Severity Reaction Status Date / Time No Known Allergies Allergy Mild Verified 05/01/24 12:17 Vital Signs Vital Signs - 24 hr 05/23/24 05:18 05/23/24 05:23 05/23/24 05:29 Temperature Pulse Rate Respiratory Rate Blood Pressure Pulse Oximetry 99 99 100 Oxygen Delivery 05/23/24 05:30 05/23/24 05:34 05/23/24 05:39 Temperature Pulse Rate 92 Respiratory Rate Blood Pressure 117/62 Pulse Oximetry 100 99 Oxygen Delivery 05/23/24 05:44 05/23/24 05:45 05/23/24 05:49 Temperature Pulse Rate 92 Respiratory Rate Blood Pressure 123/62 Pulse Oximetry 99 99 Oxygen Delivery 05/23/24 05:54 05/23/24 05:59 05/23/24 06:00 Temperature Pulse Rate 111 H Respiratory Rate Blood Pressure 110/57 L Pulse Oximetry 99 99 Oxygen Delivery 05/23/24 06:04 05/23/24 06:09 05/23/24 06:14 Temperature Pulse Rate Respiratory Rate Blood Pressure Pulse Oximetry 98 98 97 Oxygen Delivery 05/23/24 06:15 05/23/24 06:19 05/23/24 06:24 Temperature Pulse Rate 95 Respiratory Rate Blood Pressure 106/56 L Pulse Oximetry 97 97 Oxygen Delivery 05/23/24 06:29 05/23/24 06:30 05/23/24 06:34 Temperature Pulse Rate 105 H Respiratory Rate Blood Pressure 112/58 L Pulse Oximetry 98 96 Oxygen Delivery 05/23/24 06:44 05/23/24 06:49 05/23/24 06:54 Temperature Pulse Rate Respiratory Rate Blood Pressure Pulse Oximetry 99 100 97 Oxygen Delivery 05/23/24 06:54 05/23/24 06:56 05/23/24 07:00 Temperature Pulse Rate 94 Respiratory Rate Blood Pressure 121/79 Pulse Oximetry 96 100 Oxygen Delivery 05/23/24 07:01 05/23/24 06:23 05/23/24 07:06 Temperature 97.8 F Pulse Rate Respiratory Rate 16 Blood Pressure Pulse Oximetry 98 99 Oxygen Delivery 05/23/24 07:09 05/23/24 07:10 05/23/24 07:15 Temperature Pulse Rate Respiratory Rate Blood Pressure Pulse Oximetry 96 99 100 Oxygen Delivery 05/23/24 07:20 05/23/24 07:25 05/23/24 07:30 Temperature Pulse Rate 109 H Respiratory Rate Blood Pressure Pulse Oximetry 98 100 98 Oxygen Delivery 05/23/24 07:35 05/23/24 07:40 05/23/24 07:45 Temperature Pulse Rate Respiratory Rate Blood Pressure Pulse Oximetry 99 98 98 Oxygen Delivery 05/23/24 07:50 05/23/24 07:55 05/23/24 08:01 Temperature Pulse Rate Respiratory Rate Blood Pressure Pulse Oximetry 99 99 99 Oxygen Delivery 05/23/24 08:04 05/23/24 08:09 05/23/24 08:14 Temperature Pulse Rate 100 Respiratory Rate Blood Pressure 137/79 Pulse Oximetry 99 99 99 Oxygen Delivery 05/23/24 08:19 05/23/24 08:24 05/23/24 08:29 Temperature Pulse Rate Respiratory Rate Blood Pressure Pulse Oximetry 99 99 98 Oxygen Delivery 05/23/24 08:30 05/23/24 08:34 05/23/24 08:39 Temperature Pulse Rate 85 Respiratory Rate Blood Pressure 121/67 Pulse Oximetry 100 99 Oxygen Delivery 05/23/24 08:44 05/23/24 08:49 05/23/24 08:54 Temperature Pulse Rate Respiratory Rate Blood Pressure Pulse Oximetry 99 99 100 Oxygen Delivery 05/23/24 08:59 05/23/24 09:00 05/23/24 09:04 Temperature Pulse Rate 95 Respiratory Rate Blood Pressure 121/80 Pulse Oximetry 99 99 Oxygen Delivery 05/23/24 09:09 05/23/24 09:14 05/23/24 09:19 Temperature Pulse Rate Respiratory Rate Blood Pressure Pulse Oximetry 100 99 99 Oxygen Delivery 05/23/24 05:36 05/23/24 06:30 Temperature Pulse Rate 105 H Respiratory Rate Blood Pressure 112/58 L Pulse Oximetry 98 Oxygen Delivery Room Air Exam Const: General: comfortable and no acute distress HENMT: Mouth: Yes moist mucous membranes Resp: Effort & Inspection: normal respiratory effort Cardio: Rate: regular rate Extrem: General: normal to inspection Psych: Mental Status: mental status grossly normal H&P: Results Labs Labs: Short CBC 05/23/24 Range/Units 05:12 WBC 11.2 H (4.5-10.0) K/mm3 Hgb 12.4 (12.0-15.0) g/dL Hct 36.3 L (37.0-47.0) % Plt Count 211 (150-375) k/mm3 Assessment and Plan Assessment and plan (1) Encounter for elective induction of labor: Code(s): Z34.90 - Encounter for supervision of normal , unspecified, unspecified trimester Status: Acute Assessment and Plan: - cytotec 50mcg x1 given at 0630; plan for cytotec ripening until Arredondo score of 8, followed by low dose pitocin - FHR category I
[2024-05-23 09:33] LABS: Rapid Plasma Reagin Non-Reactive (NonReactive)
[2024-05-23] MEDS: LACTATED RINGERS 1,000 ML 125 ML IV CONT (15:14)
[2024-05-23] MEDS: miSOPROStol 25 MCG TABLET PO (15:59)
[2024-05-23] MEDS: OXYTOCIN 30 UNITS/NS 500 ML 30 UNITS/500 ML BAG IV CONT (20:39)
[2024-05-23] MEDS: diphenhydrAMINE HCl INJ 50 MG/ML VIAL 25 MG IV PUSH (22:38)
[2024-05-24] VITALS (26 sets, daily range): BP systolic 83–124; BP diastolic 40–74; PULSE 74–125; RESP 16; TEMP 36.2–37.1
[2024-05-24] MEDS: LACTATED RINGERS 1,000 ML 125 ML IV CONT ×3 (02:35→18:41)
--- NOTE | 2024-05-24 08:09 | PM.OBPNLAB ---
Pain Control Date/time seen: 05/24/24 08:09 Comments: Mild to moderate contractions, patient tolerating well Pelvic Exam Dilation (cm): 2 Effacement (%): 60 station: -2 Amniotic membrane status: Ruptured (clear fluid) Contractions Monitor mode: External Contraction frequency: 2 Contraction pattern: Irregular Status status: Category ll (intermittent late decels that resolve with position change) Assessment and Plan Pitocin rate (mU/min): 10 Assessment: induction ongoing Plan: continuous present management
[2024-05-25] VITALS (45 sets, daily range): BP systolic 100–139; BP diastolic 50–96; PULSE 72–190; RESP 15–20; TEMP 36.6–37.3; O2SAT 96–99
[2024-05-25] MEDS: AMPICILLIN 2 GM/NS 100 ML 2 GM/100 ML BAG IVPB (01:51)
--- NOTE | 2024-05-25 04:52 | WPDHPUPDATE1 ---
History and Physical Update Update Date/Time: 05/25/24 04:52 History and Physical has been reviewed, including an updated exam of the patient. There are NO changes in the patient's condition. Patient has been pushing with good maternal effect x3 hours with no descent of bony skull. Risks and benefits of continued pushing vs primary c section discussed with patient, who would like to proceed with primary c section. Risks, benefits, and alternatives have been discussed and questions answered. Patient agrees to proceed with procedure.
[2024-05-25] MEDS: LACTATED RINGERS 1,000 ML 125 ML IV CONT ×2 (05:08→06:15)
[2024-05-25] MEDS: ACETAMINOPHEN 500 MG TABLET 1000 MG PO (05:08)
[2024-05-25] MEDS: AZITHROMYCIN 500 MG/NS 250 ML 500 MG/250 ML BAG 250 MG IVPB (05:09)
[2024-05-25] MEDS: ceFAZolin 2 GM/D5W 50 ML 2 GM/50 ML BAG IVPB (05:09)
[2024-05-25] MEDS: ONDANSETRON INJ 4 MG/2 ML VIAL IV PUSH (05:09)
[2024-05-25] MEDS: FAMOTIDINE 20 MG/2 ML VIAL IV PUSH (05:09)
--- NOTE | 2024-05-25 05:11 | WPDANESEPPF ---
Anes - Initial Pre Proc Eval Procedure: Operation Date: 05/25/24 05:00 Proposed Procedures p Section - Luisito Haines MD Date/Time: 05/25/24 05:11 Surgeon: Luisito Haines MD Pre Op Diagnosis: Failure to descend, TErm iUP in labor Pre Op Diagnosis: Induction of Labor Patient Data Age: 34 Gender: F Height: 1.63 m Weight: 94.01 kg Last Vital Signs Temp 37.1 C 05/25/24 04:29 Pulse 83 05/24/24 18:42 Resp 16 05/24/24 12:00 BP 124/69 05/24/24 18:42 Pulse Ox 100 05/23/24 18:05 O2 Del Method Room Air 05/23/24 18:18 Allergies Allergy/AdvReac Type Severity Reaction Status Date / Time No Known Allergies Allergy Mild Verified 05/01/24 12:17 Home Medications Medication Instructions Recorded Confirmed Type Classic 1 tablet PO DAILY 04/08/24 05/01/24 History pantoprazole 40 mg tablet,delayed 40 mg PO DAILY 04/08/24 05/01/24 History release ferrous sulfate 325 mg (65 mg 325 mg PO DAILY 05/01/24 05/01/24 History iron) tablet : gestational age (, BR[place] 05/30/24) Patient hx anesthesia problems: none Family hx anesthesia problems: none Results Review: All pre-operative results and documents have been reviewed as part of the pre-operative evaluation. [facility] Past Medical History Medical History Back pain Otitis externa Otitis media Family History Family History Other Unknown family medical history Social History Social History Smoking status: Never smoker Second hand tobacco smoke exposure: No Substance use: never Do You Feel Safe in your Home?: Yes Lack of Transportation: No Lack of Food: Never True Current Housing: I Have Housing Concerned About Future Housing: No Difficulty Paying Gas/Electric Bills: No Difficulty Paying for Meds: No Currently Unemployed: No Education: High School Diploma/GED Difficulty w/ Childcare or Family Care: No Spiritual care concerns: No Anes - Eval Final PreProcedure Day of Procedure 10/28/24 05:11 Patient weight: normal Heart: regular rate and rhythm Lungs: normal air movement Airway: Mallampati scale class II Neurological: alert and oriented Last oral intake: 2 hours ASA classification: II Anesthetic plan: proceed Anesthesia type and monitoring: regional spinal Other findings: PSF Morphine Results Review: All pre-operative results and documents have been reviewed as part of the pre-operative evaluation. Informed Consent: The patient's anesthetic plan and its attendant risks and benefits were discussed with the patient/family/POA. Questions were solicited and answers provided to the satisfaction of the patient/family/POA.
--- NOTE | 2024-05-25 06:06 | P.PCNOB_ITS ---
OB - Delivery Note Procedure Delivery date: 05/25/24 Pre-op diagnosis: Elective Induction of Labor and Other (suspected LGA, occiput posterior position) Post-op Diagnosis: Same Induction method: Per Misoprostol Protocol Delivery augmentation: Rupture of Membranes and Pitocin Delivery monitor: External FHT and External Uterine Prior to decision for section, ACOG/SMFM labor guidelines were considered and discussed with the patient and staff. Decision made to proceed with the section.: Yes Procedure Performed: Primary Primary branch: low cervical, transverse Surgeon: Luisito Haines MD Anesthesia type: Epidural Description of Procedure/Findings: The patient was taken to the operating room where she was placed in the dorsal supine position with a leftward tilt. The electronic monitor was placed and heart rate was found to be reassuring. She was prepped and draped in the normal sterile fashion, and anesthesia was checked to be adequate. A Pfannenstiel skin incision was made with the scalpel and carried through to the underlying layer of fascia with the scalpel. The fascia was incised in the midline and the incision extended laterally with the Mansfield scissors. The superior aspect of the fascial incision was then grasped with Elpidio clamps, elevated, and the underlying rectus muscles dissected off bluntly and with Mansfield scissors. Attention was then turned to the inferior aspect of the fascial incision, which in similar fashion was grasped, elevated, and the rectus muscles dissected off.? The rectus muscles were then in the midline, and the peritoneum entered bluntly. The peritoneal incision was extended superiorly and inferiorly with good visualization of the bladder. With the bladder blade providing retraction and visualization, the lower uterine segment was incised in a transverse fashion with the scalpel. The uterine incision was then extended laterally. The bladder blade was removed and the 's head was elevated and delivered atraumatically. The remainder of the infant was then delivered without difficulty, and the 's nose and mouth were suctioned with the bulb suction. The umbilical cord was doubly clamped and cut. The infant was then handed off to the waiting nursing staff. Specimens then obtained as listed below. The placenta was then removed manually and the uterus was exteriorized and cleared of all clots and debris. The uterine incision was repaired with 0- Monocryl in a running, interlocked fashion. The posterior cul-de-sac was manually cleared of all clots and debris. The uterus was returned to the abdomen. The gutters were then manually cleared of all clots and debris.? The uterine incision was visualized to be hemostatic. The fascia was reapproximated with 0-Vicryl in a running fashion. The subcutaneous tissues were irrigated with warmed normal saline, and hemostasis was assured. The skin was closed with 4-0 monocryl in a running subcuticular stitch. Fundal pressure was applied to express remaining intrauterine clots and debris. The patient tolerated the procedure well. Sponge, lap, and needle counts were correct times three per nursing. The patient was taken to the recovery room in stable condition. Specimen: No Pathology: None sent Complications: No immediate complications Condition: Stable Disposition: Floor [place] Baby Date of : 05/25/24 Time of : 05:43 Gestational Age by Date: 39 gender: Male Weight (pounds): 8 Weight (ounces): 11 presentation: vertex position: Left Occiput Posterior Placenta delivery description: Expressed Cord Vessel Description: 3 Vessels and Nuchal Cord
[2024-05-25] MEDS: OXYTOCIN 30 UNITS/NS 500 ML 30 UNITS/500 ML BAG 125 UNITS IV CONT (07:25)
--- NOTE | 2024-05-25 08:35 | OBPPTRN ---
Patient transferred to post room #290 via stretcher. Support person present. Oriented to unit, room, information board, rooming in, admission packet and security measures. Patient verbalizes understanding.
[2024-05-25] MEDS: MULTIVIT/MIN/PREN/FOL AC/IRON TABLET 1 TAB PO (10:02)
[2024-05-25] MEDS: DOCUSATE SODIUM 100 MG CAPSULE PO ×2 (10:02→16:57)
[2024-05-25] MEDS: PANTOPRAZOLE 40 MG TABLET PO (10:02)
[2024-05-25] MEDS: ACETAMINOPHEN 325 MG TABLET 650 MG PO ×3 (11:16→23:00)
[2024-05-25] MEDS: KETOROLAC 15 MG/ML VIAL (*BKC) IV PUSH ×3 (11:16→23:00)
--- NOTE | 2024-05-25 11:16 | PC.NURSE ---
Introductions were made, then consulted with patient to assess needs related to . Discussed with mother her?plans to feed?her and the?experience so far. Resources provided for inpatient and outpatient services with the feeding sheet, mom/baby guide and name written on the communication board. Mother voiced understanding of information and will call if there is a request for assistance. Reported to the Primary RN.
[2024-05-25] MEDS: SIMETHICONE 80 MG TAB.CHEW PO ×2 (11:17→16:57)
[2024-05-25] MEDS: DEXTROSE 5%/0.45% SOD CHL 1,000 ML 125 ML IV CONT ×2 (11:37→20:00)
--- NOTE | 2024-05-25 12:15 | PC.NURSE ---
Consulted with patient to assess needs related to . Discussed with mother her successes, concerns and any questions she has. We reviewed working with the , supporting breast, protecting her nipples with an optimal deep latch, good positioning, and good hand washing. Encouraged understanding the benefits of skin to skin, responding to feeding cues, frequencies of feeding 8-12 times in 24 hours (approximately 2-3 hours), duration of feedings, milk production, intake/output feeding sheet and signs of adequate intake encouraging swallowing at the breast. Reviewed positioning and alignment, supporting breast, off-centered (asymmetrical latch) and leading with the chin with big, open, wide gape. latched optimally to the right breast in cross cradle position. Education given to the mother of how to visualize the suckling (with good rocking jaw motion) swallows (dropping of the lower jaw) and how to listen for drinking at the breast (the ka sound). The infant was able to maintain latch without discomfort to mother. Nipple care reviewed with optimal latch, good positioning and using clean hands when touching her breast. Resources used to facilitate learning were used from the visual handouts/ tool/mom and baby guide. Mother voiced understanding of the education shared, to call for assistance if the does not latch or if there is discomfort with . Reported to the Primary RN.
--- NOTE | 2024-05-25 16:25 | PC.NURSE ---
1600. Dad came to the desk to request help with . Consulted with patient to assess needs related to . Mom attempting to latch infant without success and requests help. We reviewed proper positioning, and benefits of s2s during feeding. Reviewed positioning and alignment, supporting breast, off-centered (asymmetrical latch) and leading with the chin with big, open, wide gape. Infant latched optimally to the right breast in cross cradle position. Education given to the mother of how to visualize the suckling (with good rocking jaw motion) swallows (dropping of the lower jaw) and how to listen for drinking at the breast (the ka sound). The infant was able to maintain latch without discomfort to mother. Nipple care reviewed with optimal latch, good positioning and using clean hands when touching her breast. Resources used to facilitate learning were used with latch on handout, feeding cues handout, positions handout and breastmilk storage guide handout. mom and baby guide also utilized. Mother voiced understanding of the education shared, & to call for assistance if the infant does not latch or if there is discomfort with . Reported to the Primary RN.
[2024-05-26] MEDS: KETOROLAC 15 MG/ML VIAL (*BKC) IV PUSH (04:00)
[2024-05-26] MEDS: ACETAMINOPHEN 325 MG TABLET 650 MG PO ×3 (04:00→17:34)
[2024-05-26 05:07] LABS: Basophils Percent Auto 0.2 % (0.2-1.2); Eosinophils Absolute Auto 0.1 K/mm3 (0-0.3); Eosinophils Percent Auto 0.4 % (0-4.4); Hematocrit 29.8 % (37.0-47.0); Hemoglobin 10.1 g/dL (12.0-15.0); Immature Granulocyte Absolute 0.12 K/mm3 (0.00-0.031); Immature Granulocyte Percent A 0.7 % (0-0.5); Lymphocytes Absolute Auto 1.57 K/mm3 (0.9-3.2); Lymphocytes Percent Auto 9.6 % (18.3-44.2); Mean Corpuscular HGB Conc 33.9 g/dl (32-36); Mean Corpuscular Hemoglobin 30.7 pg (26-34); Mean Corpuscular Volume 90.6 fl (80-100); Mean Platelet Volume 11.8 fl (7.4-10.4); Monocytes Percent Auto 5.9 % (2.6-8.5); Neutrophils Absolute Auto 13.6 K/mm3 (1.3-6.7); Neutrophils Percent Auto 83.2 % (45.5-73.1); Platelet Count Result 183 k/mm3 (150-375); Red Blood Count 3.29 M/mm3 (4.2-5.4); Red Cell Distribution Width 14.7 % (11.5-14.5); White Blood Count 16.4 K/mm3 (4.5-10.0)
[2024-05-26 08:00] VITALS: BP 109/64; PULSE 87; RESP 16; TEMP 36.6; O2SAT 99
[2024-05-26] MEDS: PANTOPRAZOLE 40 MG TABLET PO (10:54)
[2024-05-26] MEDS: MULTIVIT/MIN/PREN/FOL AC/IRON TABLET 1 TAB PO (10:54)
[2024-05-26] MEDS: DOCUSATE SODIUM 100 MG CAPSULE PO ×2 (10:55→17:35)
[2024-05-26] MEDS: IBUPROFEN 600 MG TABLET PO ×3 (10:55→17:35)
[2024-05-26] MEDS: LIDOCAINE 5% PATCH 1 PATCH TRANSDERM (11:07)
--- NOTE | 2024-05-26 11:25 | PC.NURSE ---
Assisted mother to latch to the [left] breast in [cradle] position. He hasn't been latching to the left side, only to the right. She has some tenderness on the right nipple. [was] able to maintain an appropriate latch. Mother [declines] nipple pain [throughout feeding]. Encouraged mother to keep awake and nursing at the breast for 15 minutes. Mother taught to listen for swallowing during feedings. We observed the tummy to tummy, ear shoulder hip alignment, and nose/chin close to breast. Reviewed using the blue feeding sheet to record time and duration of feeding. Parents will call out at each feeding for assistance as needed. Mother voiced understanding of the education shared, to call for assistance if the does not latch or if there is discomfort with . name/number on communication board. Reported to the Primary RN.?
--- NOTE | 2024-05-26 11:55 | PM.OBPNVD ---
OB - PN: Subj Subjective Date/time seen: 05/26/24 11:55 Interval history: POD#1 s/p complete and pushing c section Pain well controlled Catheter removed this morning, awaiting spontaneous void Passing flatus Tolerating general diet , latching well on right side, working with OB - PN: Obj Data Labs 05/26/24 03:00 Labs: Laboratory Results - last 24 hr 05/26/24 03:00 WBC 16.4 H RBC 3.29 L Hgb 10.1 L Hct 29.8 L MCV 90.6 MCH 30.7 MCHC 33.9 RDW 14.7 H Plt Count 183 MPV 11.8 H Immature Gran % (Auto) 0.7 H Neut % (Auto) 83.2 H Lymph % (Auto) 9.6 L Casey % (Auto) 5.9 Eos % (Auto) 0.4 Baso % (Auto) 0.2 Lymph # (Auto) 1.57 Casey # (Auto) 1.0 H Eos # (Auto) 0.1 Baso # (Auto) 0.0 Abs Immat Gran (auto) 0.12 H Absolute Neuts (auto) 13.6 H Absolute Nucleated RBC 0.000 Nucleated RBC % 0.0 Blood Type O Negative Antibody Screen Negative Screen Negative Baby's Blood Type O pos Baby's CHRISTOPHER Negative Doses of RhIg Required 1 OB - PN A/P Assessment and Plan (1) S/P : Code(s): Z98.891 - History of uterine scar from previous surgery Status: Acute Plan day: 1 Plan: routine care Time Spent With Patient Time: Total time spent is greater than 50% in coordination of care (as documented) at patient's floor/unit and/or counseling patient: Review of Systems Review of Systems: All systems reviewed & are unremarkable except as noted in HPI and below Exam Const: General: comfortable and no acute distress Orientation/consciousness: patient oriented x3 Resp: Effort & Inspection: normal respiratory effort GI: GI Palp: Yes Soft to palpation and No Tenderness to palpation present (GI) Other: incision c/d/i
--- NOTE | 2024-05-26 14:35 | WPDANLDPN2 ---
Anes-Prog Note L&D Date/Time: 05/26/24 14:35 Comfortable throughout: section Neuraxial method: spinal Epidural/Spinal procedure site: clean & non-tender Neuro status: Neuro function grossly intact. Cardiovascular status: normal Respiratory status: normal Airway patency: baseline Mental status: baseline Post-Op hydration status: normal Vital Signs: Last Vital Signs Temp 36.6 C 05/26/24 08:00 Pulse 87 05/26/24 08:00 Resp 16 05/26/24 08:00 BP 109/64 05/26/24 08:00 Pulse Ox 99 05/26/24 08:00 O2 Del Method Room Air 05/26/24 10:55 Pain score (VAS): 1 I/O: Intake & Output 05/25/24 05/26/24 05/26/24 23:59 07:59 15:59 Intake Total 1550 Output Total 225 1400 700 Balance 1325 -1400 -700 Post-procedural complaints: none Patient feedback: Patient satisfied with anesthetic care.
--- NOTE | 2024-05-26 14:35 | WPDANLDNPN2 ---
Anes-Prog Note L&D-Neuraxial Date/Time: 05/26/24 14:35 Neuraxial medications: intrathecal PF morphine Opiod-related complaints: none Patient feedback: Patient satisfied with post-operative pain management.
--- NOTE | 2024-05-26 19:35 | PC.NURSE ---
[id number] Patient viewed the discharge video Mother & Baby Care, The First Two Weeks . Patient was given the opportunity and encouraged to ask questions. Patient verbalized understanding of information shared and has been given the mother/baby guide for home reference.
[2024-05-26 20:30] VITALS: BP 101/77; PULSE 64; RESP 20; TEMP 36.4; O2SAT 98
[2024-05-27] MEDS: IBUPROFEN 600 MG TABLET PO ×3 (00:15→15:46)
[2024-05-27] MEDS: ACETAMINOPHEN 325 MG TABLET 650 MG PO ×3 (00:15→15:46)
[2024-05-27] MEDS: PANTOPRAZOLE 40 MG TABLET PO (07:34)
[2024-05-27 07:35] VITALS: BP 118/73; PULSE 88; RESP 16; TEMP 37.5; O2SAT 100
[2024-05-27] MEDS: DOCUSATE SODIUM 100 MG CAPSULE PO (07:35)
[2024-05-27] MEDS: MULTIVIT/MIN/PREN/FOL AC/IRON TABLET 1 TAB PO (07:35)
--- NOTE | 2024-05-27 10:00 | PC.NURSE ---
Consulted with mother concerning needs and she shared her ability to independently latch infant. She has nipple pain and has supplemented in the night. Encouraged her to continue putting baby to breast at each feeding if that is her goal. She says it is and she is continuing to attempt, working on maintaining a deep latch. We also talked trough skipping a and replacing with a pumping session so she has time to heal. She has her pump at home that she charged and looked through before delivery. Book given. Mother is feeding appropriately for growth of infant and understands stimulating to eat if needed. Infant has had appropriate feedings in the last 24 hours meets the outcomes for weight, output, blood sugar and jaundice at this time. Reinforced understanding of milk production, transition of milk, signs of adequate intake, transition of stool, prevention/relief of engorgement, plugged ducts, mastitis, responsive watching for feeding cues, the different methods of stimulating to breastfeed 1-3 hours after the start of the last feeding, community resources, and when to call a provider using the resource of the feeding sheet along with the mom and baby guide. Mother voiced understanding of the information shared, is confident to continue effectively her infant at home, when to call for assistance, denies any additional assistance or education at this time. Reported to the Primary RN.
[2024-05-27] MEDS: RHO(D) IMMUNE GLOBULIN 300 MCG/2 ML SYRINGE IM (12:05)
--- NOTE | 2024-05-27 12:54 | PM.OBPNVD ---
OB - PN: Subj Subjective Date/time seen: 05/27/24 12:54 Interval history: POD#2 s/p complete and pushing c section Pain well controlled Voiding without issue Passing flatus Tolerating general diet Ready for discharge today OB - PN: Obj Data Labs 05/26/24 03:00 Labs: Laboratory Results - last 24 hr 05/26/24 03:00 Blood Type O Negative Antibody Screen Negative Screen Negative Baby's Blood Type O pos Baby's CHRISTOPHER Negative Doses of RhIg Required 1 OB - PN A/P Plan day: 2 Plan: routine care and discharge home Time Spent With Patient Time: Total time spent is greater than 50% in coordination of care (as documented) at patient's floor/unit and/or counseling patient: Review of Systems Review of Systems: All systems reviewed & are unremarkable except as noted in HPI and below Exam Const: General: comfortable and no acute distress Orientation/consciousness: patient oriented x3 Resp: Effort & Inspection: normal respiratory effort GI: GI Palp: Yes Soft to palpation and No Tenderness to palpation present (GI) Other: incision c/d/i
--- NOTE | 2024-05-27 12:59 | PM.OBDSVD ---
DS: Admitting Diagnosis Discharge Date 05/27/24 Admitting Diagnosis elective induction of labor DS: Discharge Diagnosis Discharge Diagnosis (1) S/P : Code(s): Z98.891 - History of uterine scar from previous surgery Status: Acute OB - DS: Summary OB Procedures : None OB Procedures Intrapartum: low cervical, transverse OB Procedures: : None Peripartum Data Procedures: Procedures Operation Date: 05/25/24 05:00 Actual Procedure Side Surgeon p Section Not Applicable Luisito Haines MD Time Spent with Patient Time attestation: Total time spent providing and/or coordinating discharge services: DS: Data Data Completed and Pending Labs on day of discharge: Labs from last 24 hours 05/26/24 03:00 Blood Type O Negative Antibody Screen Negative Screen Negative Baby's Blood Type O pos Baby's CHRISTOPHER Negative Doses of RhIg Required 1 Discharge Plan Discharge Attending physician on discharge: Luisito Haines Discharging Clinician: Luisito Haines Patient Disposition: Home, Self-Care Activity: may shower, as tolerated and pelvic rest Diet: as tolerated Patient Instructions: Antibiotic Form Stand Alone Forms: General Discharge Information Follow-up/Referrals: Luisito Haines MD [Physician] - Discharge Medications: New docusate sodium 100 mg Capsule 100 mg PO BID Qty: 60 0RF ibuprofen 600 mg Tablet 600 mg PO Q6H Qty: 30 0RF Continued pantoprazole 40 mg tablet,delayed release (DR/EC) 40 mg PO DAILY Classic 1 tablet PO DAILY ferrous sulfate 325 mg (65 mg iron) Tablet 325 mg PO DAILY Date of admission: 05/23/24 05:02 Primary Care Provider: PHYSICIAN,[employer] SUPERVISOR Admitting Provider: Luisito Haines Attending physician on admission: Luisito Haines Condition: Stable
[2024-05-28 09:03] VITALS: BP 115/62; PULSE 85; RESP 20; TEMP 36.6; O2SAT 97
== END 2024-05-27 17:40 | disposition home or self-care (01) | DRG 540 ==
LOC: ANHLDR 05-25 06:40 → ANHOB2 05-25 08:52
PROVIDERS: Admitting Provider Obstetrics & Gynecology; Visit Provider Obstetrics & Gynecology
PROC: 10D00Z1 Extraction of Products of Conception, Low, Open Approach (ICD-10-PCS; CPT 59514; principal; 2024-05-25 05:00)
DX: O36.63X0 Maternal care for excessive fetal growth, third trimester, not applicable or unspecified (principal); Z37.0 Single live birth; Z3A.39 39 weeks gestation of pregnancy; O64.0XX0 Obstructed labor due to incomplete rotation of fetal head, not applicable or unspecified; O43.113 Circumvallate placenta, third trimester; O69.89X0 Labor and delivery complicated by other cord complications, not applicable or unspecified
CPT/HCPCS: 36415; 85025; 85461; 86592; 86703; 86850; 86900; 86901; 90384; A9270; G0432; J0290; J0456; J0690; J1200; J1885; J2274; J2405; J2590; J2790; J7120